=== PATIENT | male | born 1955 | race Caucasian/White ===

== ENCOUNTER 2016-08-21 11:06 | Emergency (ER) | payer SELFPAY ==
[~2016-08-21] VITALS: Ht 172.7 cm; Wt 62.0 kg
[~2016-08-21 11:06] MED LIST: ALBUTEROL SULF8.5 GM IH; Levaquin PO; MOTRIN600 MG PO; NOHOMEMEDS; Spiriva IH; VICODIN 5-3001 EACH PO; predniSONE PO
[2016-08-21 12:25] LABS: HEMATOCRIT 44.4 % (38.0-50.0); MCH 31.5 PG (29.0-34.0); MCHC 34.9 G/DL (30.0-36.0); MCV 90.2 FL (86-99); MEAN PLAT.VOLUME 12.2 uM^3 (9.0-12.4); PLATELET COUNT 56 K/uL (156-360); RBC DIS.WIDTH-CV 15.4 % (11.8-14.6); RBC DIS.WIDTH-SD 50.1 % (39-53); RED BLOOD COUNT 4.92 M/uL (4.00-5.50); WHITE BLOOD COUNT 7.3 K/uL (4.1-10.2)
[2016-08-21 12:26] LABS: INFLUENZA A VIRAL ANTIGEN NEGATIVE; INFLUENZA B VIRAL ANTIGEN POSITIVE
[2016-08-21 12:39] LABS: CHLORIDE 102 mEq/L (99-109); SODIUM 134 mEq/L (136-147)
[2016-08-21 12:41] LABS: GLUCOSE 111 mg/dL (70-99)
[2016-08-21 12:42] LABS: ANION GAP 8 MEQ/L (2-14)
[2016-08-21 12:45] LABS: GFR ESTIMATE (CALCULATED) > 59 mL/min/; UREA NITROGEN (BUN) 18 mg/dL (9-23)
[2016-08-21] MEDS ORDERED: TAMIFLU75 MG PO (17:20)
[2016-08-21] MEDS ORDERED: VENTOLIN HFA18 GM IH (17:20)
[2016-08-21] MEDS ORDERED: PREDNISONE50 MG PO (17:20)
[2016-08-21] MEDS ORDERED: SYMBICORT60 INHALAT IH (17:20)
[2016-08-21 17:52] VITALS: BP 140/80
== END 2016-08-21 17:53 | disposition home or self-care (01) ==
LOC: RME 11:06 → EME 11:06 → RME 17:53
DX: J11.1 Influenza due to unidentified influenza virus with other respiratory manifestations (principal); J40 Bronchitis, not specified as acute or chronic; F17.200 Nicotine dependence, unspecified, uncomplicated; Z88.0 Allergy status to penicillin
CPT/HCPCS: 71020; 80048; 85027; 87502; 99281; 99284; J7512

== ENCOUNTER 2016-08-27 13:43 | Inpatient (IN) | payer OTHER ==
[~2016-08-27] VITALS: Ht 172.7 cm; Wt 63.0 kg
[~2016-08-27 13:43] MED LIST changes: +PREDNISONE50 MG PO; +SYMBICORT60 INHALAT IH; +TAMIFLU75 MG PO; +VENTOLIN HFA18 GM IH
[2016-08-27 14:24] LABS: HEMATOCRIT 41.3 % (38.0-50.0); MCHC 34.1 G/DL (30.0-36.0); MCV 90.8 FL (86-99); MEAN PLAT.VOLUME 11.7 uM^3 (9.0-12.4); PLATELET COUNT 86 K/uL (156-360); RBC DIS.WIDTH-CV 15.6 % (11.8-14.6); RBC DIS.WIDTH-SD 50.7 % (39-53); RED BLOOD COUNT 4.55 M/uL (4.00-5.50)
[2016-08-27 14:29] LABS: CHLORIDE 105 mEq/L (99-109); POTASSIUM 4.1 mEq/L (3.7-5.4); SODIUM 137 mEq/L (136-147)
[2016-08-27 14:31] LABS: GLUCOSE 107 mg/dL (70-99)
[2016-08-27 14:32] LABS: ANION GAP 7 MEQ/L (2-14)
[2016-08-27 14:35] LABS: GFR ESTIMATE (CALCULATED) > 59 mL/min/
[2016-08-27 14:36] LABS: UREA NITROGEN (BUN) 14 mg/dL (9-23)
[2016-08-27 14:37] LABS: TROP-I INTERPRETATION NEGATIVE; TROPONIN-I < 0.01 ng/mL (0.0-0.30)
[2016-08-27] MEDS ORDERED: PROAIR HFA8.5 GM IH (15:35)
[2016-08-27] MEDS ORDERED: THERAFLU EXP245.5 ML PO (15:36)
[2016-08-27] MEDS ORDERED: ALEVE220 MG PO (15:36)
[2016-08-27 16:22] VITALS: BP 126/72
[2016-08-27 20:00] VITALS: BP 123/68
[2016-08-27 23:39] VITALS: BP 122/55
[2016-08-28] VITALS (8 sets, daily range): BP systolic 109–155; BP diastolic 15–74
[2016-08-28 06:29] LABS: HEMATOCRIT 37.2 % (38.0-50.0); MCH 31.3 PG (29.0-34.0); MCHC 34.4 G/DL (30.0-36.0); MEAN PLAT.VOLUME 12.1 uM^3 (9.0-12.4); PLATELET COUNT 81 K/uL (156-360); RBC DIS.WIDTH-CV 15.4 % (11.8-14.6); RBC DIS.WIDTH-SD 51.5 % (39-53); RED BLOOD COUNT 4.09 M/uL (4.00-5.50); WHITE BLOOD COUNT 3.9 K/uL (4.1-10.2)
[2016-08-29 00:40] VITALS: BP 114/74
[2016-08-29 07:14] VITALS: BP 112/68
[2016-08-29 10:57] VITALS: BP 138/75
[2016-08-29 17:45] VITALS: BP 143/81
[2016-08-29 19:47] VITALS: BP 125/68
[2016-08-30] VITALS: BP 119/73
[2016-08-30 04:00] VITALS: BP 115/65
[2016-08-30 07:15] VITALS: BP 127/80
[2016-08-30 09:11] LABS: D-DIMER ELISA 1.24 mg/L FEU (< 0.57)
[2016-08-30 10:58] VITALS: BP 157/81
[2016-08-30] MEDS ORDERED: DOXYCYCLINE HY100 M3 PO (11:26)
[2016-08-30] MEDS ORDERED: ADVAIR HFA120 INHALA IH (11:26)
[2016-08-30] MEDS ORDERED: PREDNISONE20 MG PO (11:26)
[2016-08-30] MEDS ORDERED: SPIRIVA RESPIMAT4 GM IH (11:26)
[2016-08-30] MEDS ORDERED: SYMBICORT60 INHALA1 IH (11:59)
== END 2016-08-30 14:37 | disposition home or self-care (01) | DRG 191 ==
LOC: EME 13:43 → EDOF 15:24 → 5WEST 16:21 → 5SOUTH 08-28 09:23 → 5WEST 08-28 09:23 → 5SOUTH 08-28 09:23
PROVIDERS: Emergency Medicine; Internal Medicine; Physician Assistant Medical
DX: J44.1 Chronic obstructive pulmonary disease with (acute) exacerbation (principal); D61.818 Other pancytopenia; D69.59 Other secondary thrombocytopenia; F10.988 Alcohol use, unspecified with other alcohol-induced disorder; J44.0 Chronic obstructive pulmonary disease with (acute) lower respiratory infection; J20.9 Acute bronchitis, unspecified; R63.4 Abnormal weight loss; F17.210 Nicotine dependence, cigarettes, uncomplicated; R09.02 Hypoxemia; Z68.21 Body mass index [BMI] 21.0-21.9, adult
CPT/HCPCS: 71020; 71275; 80048; 84484; 85027; 85379; 87040; 87070; 87205; 93005; 94640; 94640 76; 94799; 99202; 99281; 99284; G0378; J1650; J2920; J2930; J7030; J7512; J7644

== ENCOUNTER 2016-11-07 11:36 | Emergency (ER) | payer OTHER ==
[~2016-11-07] VITALS: Ht 172.7 cm; Wt 58.0 kg
[~2016-11-07 11:36] MED LIST changes: +ADVAIR HFA120 INHALA IH; +ALEVE220 MG PO; +DOXYCYCLINE HY100 M3 PO; +PREDNISONE20 MG PO; +PROAIR HFA8.5 GM IH; +SPIRIVA RESPIMAT4 GM IH; +SYMBICORT60 INHALA1 IH; +THERAFLU EXP245.5 ML PO
[2016-11-07] MEDS ORDERED: NICODERM CQ1 EAC1 TD (11:52)
[2016-11-07] MEDS ORDERED: RANITIDINE HCL150 M1 PO (11:53)
[2016-11-07] MEDS ORDERED: PREDNISONE50 MG PO (14:15)
[2016-11-07 15:35] VITALS: BP 128/87
== END 2016-11-07 15:56 | disposition home or self-care (01) ==
LOC: EME → EDBD 11:36 → EME 11:36
DX: J44.1 Chronic obstructive pulmonary disease with (acute) exacerbation (principal); Z87.891 Personal history of nicotine dependence
CPT/HCPCS: 71020; 94640; 99281; 99285

== ENCOUNTER → 2016-11-16 | Outpatient (CLI) | payer OTHER ==
[~2016-11-16] MED LIST changes: +NICODERM CQ1 EAC1 TD; +RANITIDINE HCL150 M1 PO
== END | disposition home or self-care (01) ==
LOC: RES 07:37
DX: Z02.71 Encounter for disability determination (principal)
CPT/HCPCS: 94060; 94729; 94760

== ENCOUNTER 2017-01-28 18:11 | Emergency (ER) | payer OTHER ==
[~2017-01-28] VITALS: Ht 172.7 cm; Wt 60.8 kg
[2017-01-28 19:21] LABS: HEMATOCRIT 42.4 % (38.0-50.0); MCHC 33.5 G/DL (30.0-36.0); MCV 92.6 FL (86-99); MEAN PLAT.VOLUME 10.7 uM^3 (9.0-12.4); PLATELET COUNT 84 K/uL (156-360); RBC DIS.WIDTH-CV 13.9 % (11.8-14.6); RBC DIS.WIDTH-SD 47.6 % (39-53); RED BLOOD COUNT 4.58 M/uL (4.00-5.50)
[2017-01-28 19:30] LABS: CHLORIDE 102 mEq/L (99-109); POTASSIUM 4.2 mEq/L (3.7-5.4); SODIUM 135 mEq/L (136-147)
[2017-01-28 19:31] LABS: GLUCOSE 101 mg/dL (70-99)
[2017-01-28 19:33] LABS: ANION GAP 7 MEQ/L (2-14)
[2017-01-28 19:35] LABS: GFR ESTIMATE (CALCULATED) > 59 mL/min/
[2017-01-28 19:36] LABS: UREA NITROGEN (BUN) 16 mg/dL (9-23)
[2017-01-28] MEDS ORDERED: PREDNISONE50 MG PO (20:16)
[2017-01-28 20:37] VITALS: BP 130/86
== END 2017-01-28 20:39 | disposition home or self-care (01) ==
LOC: EME 18:11
PROVIDERS: Emergency Medicine
DX: J44.1 Chronic obstructive pulmonary disease with (acute) exacerbation (principal); Z99.81 Dependence on supplemental oxygen; Z87.891 Personal history of nicotine dependence; K21.9 Gastro-esophageal reflux disease without esophagitis; Z88.0 Allergy status to penicillin
CPT/HCPCS: 71020; 80048; 85027; 94640; 99281; 99284; J1100; J7512